=== PATIENT | female | born 1985 | race Caucasian/White ===

== ENCOUNTER 2017-10-06 15:43 | Emergency (ER) | payer BC, OTHER ==
[2017-10-06 16:15] VITALS: BP 139/87
[2017-10-06] MEDS ORDERED: MAGNESIUM SULFATE 2GM/50ML 0 GM/0 ML BAG IV ONE (16:34)
[2017-10-06] MEDS ORDERED: TESSALON PERLES PO ONE (19:11)
[2017-10-06] MEDS ORDERED: MOTRIN PO ONE (19:11)
--- NOTE | 2017-10-06 19:27 | Emergency Department Report ---
ED Anxiety HPI - General Chief Complaint: Anxiety Stated Complaint: WEAKNESS RT ARM/ANXIETY Time Seen by Provider: 10/06/17 19:10 Source: patient Mode of arrival: Ambulatory - History of Present Illness Initial Comments: This is a 31-year-old female nontoxic, well nourished in appearance, no acute signs of distress presents to the ED with c/o of productive cough, anxiety and intermittent weakness primarily on her right arm. Patient stated has a chronic anxiety and takes Citalopram HBR 40 mg daily and sees her PCP and systole for this. Patient denies any symptoms. Patient describes productive cough as yellow mucus production. Patient denies any sick contact.. Patient denies any recent travels, long car, recent hospital stays. Patient denies any facial drooping or abnormal gait. Patient stated that weakness is intermittent but is currently resolved now in the ED. Patient denies any calf pain or calf tenderness. Patient denies any suicidal or homicidal indication. Patient denies any depression. Patient denies any chest pain, short of breath, fever, chills, nausea, vomiting, hemoptysis, numbness, tingling, headache or stiff neck. Patient denies any drug allergies. MD Complaint: anxiety, other (cough, weakness) -: days(s) (2) Place: home Previous History of Same: Yes Severity: mild Quality: intermittant, improving Provoking factors: emotional stress Improves With: nothing Worsens With: nothing Associated symptoms: denies other symptoms, cough. denies: chest pain, shortness of breath, palpitations, diaphoresis, confusion, fever/chills, headaches, anorexia, malaise, nausea/vomiting, rash, seizure, syncope, weakness - Related Data Home Medications: Previous Rx's Medication Instructions Recorded Last Taken Type Nitrofurantoin Mathews/M-Cryst 100 mg PO Q12HR #14 capsule 11/01/15 Unknown Rx [Macrobid CAP] Azithromycin [Zithromax Z-NIELS] 250 mg PO DAILY #6 tablet 10/06/17 Unknown Rx Benzonatate [Tessalon Perle] 100 mg PO Q8H PRN #20 capsule 10/06/17 Unknown Rx Ibuprofen [Motrin] 600 mg PO Q8H PRN #30 tablet 10/06/17 Unknown Rx Allergies/Adverse Reactions: Allergies Allergy/AdvReac Type Severity Reaction Status Date / Time No Known Allergies Allergy Verified 10/06/17 16:39 ED Review of Systems ROS: Stated complaint: WEAKNESS RT ARM/ANXIETY Other details as noted in HPI Constitutional: denies: chills, fever Eyes: denies: eye pain, eye discharge, vision change ENT: denies: ear pain, throat pain Respiratory: cough. denies: shortness of breath, wheezing Cardiovascular: denies: chest pain, palpitations Endocrine: no symptoms reported Gastrointestinal: denies: abdominal pain, nausea, vomiting, diarrhea Genitourinary: denies: urgency, dysuria, discharge Musculoskeletal: denies: back pain, joint swelling, arthralgia Skin: denies: rash, lesions Neurological: weakness. denies: headache, paresthesias Psychiatric: anxiety. denies: depression, auditory hallucinations, visual hallucinations, suicidal thoughts Hematological/Lymphatic: denies: easy bleeding, easy bruising ED Past Medical Hx - Past Medical History Additional medical history: Fertility clinic - Surgical History Additional Surgical History: [id number]. GALL BLADDER-2016 - Social History Smoking Status: Never Smoker Substance Use Type: None - Medications Home Medications: Home Medications Medication Instructions Recorded Confirmed Last Taken Type Nitrofurantoin Mathews/M-Cryst 100 mg PO Q12HR #14 capsule 11/01/15 Unknown Rx [Macrobid CAP] Azithromycin [Zithromax Z-NIELS] 250 mg PO DAILY #6 tablet 10/06/17 Unknown Rx Benzonatate [Tessalon Perle] 100 mg PO Q8H PRN #20 capsule 10/06/17 Unknown Rx Ibuprofen [Motrin] 600 mg PO Q8H PRN #30 tablet 10/06/17 Unknown Rx ED Physical Exam - General Limitations: No Limitations General appearance: alert, in no apparent distress - Head Head exam: Present: atraumatic, normocephalic - Eye Eye exam: Present: normal appearance, PERRL, EOMI Pupils: Present: normal accommodation - ENT ENT exam: Present: normal exam, normal orophraynx, mucous membranes moist, TM's normal bilaterally, normal external ear exam - Neck Neck exam: Present: normal inspection, full ROM. Absent: tenderness, meningismus, lymphadenopathy - Respiratory Respiratory exam: Present: normal lung sounds bilaterally. Absent: respiratory distress, wheezes, rales, rhonchi, stridor, chest wall tenderness, accessory muscle use, decreased breath sounds, prolonged expiratory - Cardiovascular Cardiovascular Exam: Present: regular rate, normal rhythm, normal heart sounds. Absent: irregular rhythm, systolic murmur, diastolic murmur, rubs, gallop - GI/Abdominal GI/Abdominal exam: Present: soft, normal bowel sounds. Absent: distended, tenderness, guarding, rebound, rigid, diminished bowel sounds - Rectal Rectal exam: Present: deferred - Extremities Exam Extremities exam: Present: normal inspection, full ROM, normal capillary refill. Absent: tenderness - Back Exam Back exam: Present: normal inspection, full ROM. Absent: tenderness, CVA tenderness (R), CVA tenderness (L), muscle spasm, paraspinal tenderness, vertebral tenderness, rash noted - Neurological Exam Neurological exam: Present: alert, oriented X3, CN II-XII intact, normal gait - Expanded Neurological Exam Expanded Patient oriented to: Present: person, place, time Cranial nerves: EOM's Intact: Normal, Gag Reflex: Normal, Facial Sensation: Normal Cerebellar function: Finger to Nose: Normal Upper motor neuron: Pronator Drift: Normal, Sensory Extinction: Normal Sensory exam: Upper Extremity Light Touch: Normal, Upper Extremity Pin Prick: Normal, Upper Extremity Temperature: Normal, UE 2 Point Discrimination: Normal, Lower Extremity Light Touch: Normal, Lower Extremity Pin Prick: Normal, Lower Extremity Temperature: Normal, LE 2 Point Discrimination: Normal Motor strength exam: RUE: 5, LUE: 5, RLE: 5, LLE: 5 Best Eye Response ([place]): (4) open spontaneously Best Motor Response ([place]): (6) obeys commands Best Verbal Response ([place]): (5) oriented [place] Total: 15 - Psychiatric Psychiatric exam: Present: normal affect, normal mood - Skin Skin exam: Present: warm, dry, intact, normal color. Absent: rash ED Course Vital Signs 10/06/17 10/06/17 16:07 19:27 Temperature 100.4 F H Pulse Rate 72 Respiratory 18 18 Rate Blood Pressure 139/87 O2 Sat by Pulse 97 Oximetry - Reevaluation(s) Reevaluation #1: 10/06/17 19:29 Patient is speaking in full sentences with no signs of distress noted. ED Medical Decision Making - Lab Data Result diagrams: 10/06/17 19:31 10/06/17 19:31 - EKG Data When compared to previous EKG there are: no significant change Interpretation: no acute changes, normal EKG 10/06/17 19:30 Normal sinus rhythm with no ST abnormalities. Signed and reviewed by MD. - Medical Decision Making This is a 32-year-old female that presents with bronchitis, anxiety and weakness. Patient is stable and was examined by me. Chest x-ray has been obtained and dictated by radiologist with normal exam. Patient is notified of x -ray results with no questions noted. Labs unremarkable. CT of head/brain unremarkable and dictated by the radiologist. Patient is neurologically stable. No signs or symptoms of stroke. Patient stated this is intermittent. EKG normal sinus rhythm with no ST abnormalities. Due to patient having symptoms of bronchitis and I will treat patient empirically with zpak. Patient was instructed to increase hydration, rest and take Motrin for fever episodes. Patient received motrin and tesslone perrls in the ED. Vitals stable. Patient is nonfebrile and normal heart rate. Patient was instructed Follow-up with a primary care doctor in 3-5 days or if symptoms worsen and continue return to emergency room as soon as possible. At time time of discharge, the patient does not seem toxic or ill in appearance. No acute signs of distress noted. Patient agrees to discharge treatment plan of care. No further questions noted by the patient. Critical care attestation.: If time is entered above; I have spent that time in minutes in the direct care of this critically ill patient, excluding procedure time. ED Disposition Clinical Impression: Anxiety, Weakness, Bronchitis Disposition: DC-01 TO HOME OR SELFCARE Is pt being admited?: No Does the pt Need Aspirin: No Condition: Stable Instructions: Acute Bronchitis (ED), Anxiety (ED), Weakness (ED) Additional Instructions: Follow-up with a primary care doctor in 3-5 days or if symptoms worsen and continue return to emergency room as soon as possible. Prescriptions: Azithromycin [Zithromax Z-NIELS] 250 mg PO DAILY #6 tablet Benzonatate [Tessalon Perle] 100 mg PO Q8H PRN #20 capsule PRN Reason: Cough Ibuprofen [Motrin] 600 mg PO Q8H PRN #30 tablet PRN Reason: Pain Referrals: PRIMARY CAREMD [Primary Care Provider] - 3-5 Days CARLO MAKI MD [Staff Physician] - 3-5 Days [facility] [Outside] - 3-5 Days [facility] [Outside] - 3-5 Days Forms: Work/School Release Form(ED)
[2017-10-06 19:45] LABS: Basophils % (Auto) 0.4 % (0.0-1.8); Eosinophils % (Auto) 0.4 % (0.0-4.3); Hematocrit 47.6 % (30.3-42.9); Lymphocytes # (Auto) 2.8 K/mm3 (1.2-5.4); Mean Corpuscular HGB Conc 34 % (30-34); Mean Corpuscular Hemoglobin 29 pg (28-32); Mean Corpuscular Volume 87 fl (79-97); Monocytes # (Auto) 0.8 K/mm3 (0.0-0.8); Monocytes % (Auto) 6.5 % (0.0-7.3); Platelet Count 306 K/mm3 (140-440); Red Blood Count 5.47 M/mm3 (3.65-5.03); Red Cell Distribution Width 13.7 % (13.2-15.2)
[2017-10-06 19:48] LABS: Bacteria,Urine 3+ /HPF (Negative); Bilirubin,Urine NEG (Negative); Blood,Urine NEG (Negative); Color,Urine Yellow (Yellow); Mucus,Urine 2+ /HPF; Protein,Urine <15 mg/dL mg/dL (Negative)
[2017-10-06 20:12] LABS: BUN/Creatinine Ratio 19; Blood Urea Nitrogen 13 mg/dL (7-17); Calcium 9.8 mg/dL (8.4-10.2); Hemolysis Index 1
--- NOTE | 2017-10-06 20:35 | XRay Report ---
FINAL REPORT PROCEDURE: XR CHEST ROUTINE 2V TECHNIQUE: PA and lateral chest radiographs were obtained. CPT 04854 HISTORY: cough COMPARISON: No prior studies are available for comparison. FINDINGS: Heart: Normal. Mediastinum/Vessels: Normal. Lungs/Pleural space: Normal. Bony thorax: No acute osseous abnormality. Other: IMPRESSION: Normal examination.
--- NOTE | 2017-10-06 20:35 | Cat Scan Report ---
FINAL REPORT PROCEDURE: CT HEAD/BRAIN WO CON TECHNIQUE: Computerized tomography of the head was performed without contrast material. HISTORY: weakness COMPARISON: No prior studies are available for comparison. FINDINGS: Skull and scalp: Normal. Paranasal sinuses: A 1 centimeter polypoid lesion is noted in the right sphenoid sinus most likely representing a mucous retention cyst.. Ventricles and subarachnoid spaces: Normal. Cerebrum: No evidence of hemorrhage, acute infarction or mass . Cerebellum and brainstem: No evidence of hemorrhage, acute infarction or mass. Vasculature: Normal. Comments: None. IMPRESSION: No acute intracranial abnormality.
== END 2017-10-06 20:53 | disposition home or self-care (01) ==
LOC: ED 15:43
DX: J40 Bronchitis, not specified as acute or chronic (principal); F41.9 Anxiety disorder, unspecified; R53.1 Weakness
CPT/HCPCS: 36415; 70450; 71046; 80048; 81001; 84703; 85025; 93005; 93010; J3475